=== PATIENT | female | born 1950 | race Two or more races ===

== ENCOUNTER 2019-03-07 06:20 | Day surgery (SDC) | payer OTHER ==
[~2019-03-07 06:20] MED LIST: AMILODIPINE PO
[2019-03-07] MEDS ORDERED: SURFAK240 M1 PO (11:43)
[2019-03-07] MEDS ORDERED: PERCOCET 5-3251 EACH PO (11:43)
== END 2019-03-07 17:10 | disposition home or self-care (01) ==
LOC: CIR.AMB 06:20
DX: N81.3 Complete uterovaginal prolapse (principal)